=== PATIENT | female | born 2000 | race American Indian/Alaskan Native ===

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

== ENCOUNTER 2021-09-07 01:50 | Outpatient (CLI) | payer MEDICAID ==
[2021-09-07 02:37] VITALS: BP 127/60
[2021-09-07] MEDS ORDERED: LACTATED RINGERS 500 ML IV ONE (03:00)
[2021-09-07 03:29] LABS: Bacteria,Urine 4+ /HPF (Negative); Mucus,Urine 3+ /HPF
[2021-09-07 03:47] LABS: Color,Urine Yellow (Yellow)
[2021-09-07 03:48] LABS: Bilirubin,Urine Negative (Negative); Blood,Urine Small (Negative)
[2021-09-07 03:49] LABS: Urobilinogen,Urine < 2.0 mg/dL (<2.0)
[2021-09-07] MEDS ORDERED: FLUCONAZOLE 200 MG TAB PO SCH (06:00)
--- NOTE | 2021-09-07 06:15 | Ultrasound Report ---
US OB limited INDICATION / CLINICAL INFORMATION: R/O ABRUPTION COMPARISON: None available. TECHNIQUE: Using a transcutaneous probe, multiple grayscale, color Doppler, and spectral Doppler imag es of the uterus and fetus were captured and stored. FINDINGS: Based on last menstrual period of 04/22/2021, the clinical estimation of gestational age is 19 weeks 5 days. A single cephalic fetus is present heart rate of 144 bpm. Anterior placenta is present, grade 0. The placental interface appears intact. IMPRESSION: 1. No ultrasound evidence of abruption. Signer Name: Jamaal Deng II, MD Signed: 09/07/2021 6:11 AM Workstation Name: [id number]
[2021-09-07] MEDS ORDERED: LIDOCAINE (1%) 10 MG/1 ML VIAL 20 ML MDV INFILTRATI SCH (07:30)
== END 2021-09-07 08:19 | disposition home or self-care (01) ==
LOC: TRG 01:50 → APU 01:54 → TRG 08:19
PROVIDERS: ATTEND Obstetrics & Gynecology
DX: O46.92 Antepartum hemorrhage, unspecified, second trimester (principal); O26.892 Other specified pregnancy related conditions, second trimester; R10.2 Pelvic and perineal pain; Z3A.19 19 weeks gestation of pregnancy
CPT/HCPCS: 76815; 81001; 87086; 96372; J0696; J3490; 87076; 87186